=== PATIENT | male | born 1960 | race Caucasian/White ===

== ENCOUNTER 2024-09-16 17:21 | Emergency (ER) | payer OTHER, SELFPAY ==
--- NOTE | 2024-09-16 17:22 | ECG_ITS ---
Test Date: 2024-09-16 17:29:20 Measurements Intervals [place] Rate: 77 P: 70 AL: 160 QRS: 62 QRSD: 90 T: 65 QT: 366 QTc: 416 Interpretive Statements SINUS RHYTHM POSSIBLE LEFT ATRIAL ENLARGEMENT BASELINE ARTIFACT- I, II, III, AVR, AVL, AVF, V1-V6 BORDERLINE ECG No previous ECG available for comparison Electronically Signed On 09-16-2024 17:52:43 PROGRAM CHECKER by El Etienne D.O.
[2024-09-16 17:30] VITALS: BP 152/82; PULSE 79; RESP 15; O2SAT 99
[2024-09-16 17:32] VITALS: BP 156/84; PULSE 75; RESP 18; TEMP 36.6; O2SAT 100
--- NOTE | 2024-09-16 17:40 | PC.NURSE ---
Upon re-entering room patient states he was able to burp and feels much better, pain is gone.
--- NOTE | 2024-09-16 17:43 | ED.GENADULT ---
HPI - General Adult General Chief complaint: Chest Pain Stated complaint: chest pain Time Seen by Provider: 09/16/24 17:39 History of Present Illness HPI narrative: Jabier is a 64M with no PMH that presented to the ED with pressure and discomfort in his LUQ. His niece gave him a 325 when he said the pain went up into his left shoulder. There is no dyspnea, vomiting, lightheadedness, or palpitations. He did have good relief just now after he belched. Related Data Home Medications Medication Instructions Recorded Confirmed No Home Medications 09/16/24 09/16/24 Allergies Allergy/AdvReac Type Severity Reaction Status Date / Time No Known Allergies Allergy Verified 09/16/24 17:36 Review of Systems Review of Systems: All systems reviewed & are unremarkable except as noted in HPI and below Exam Const: General: cooperative, healthy appearing, comfortable, no acute distress, well developed, alert, awake and Physically active Orientation/consciousness: oriented to person, oriented to place and oriented to time HENMT: Head: normal to inspection, normocephalic and atraumatic Ears: hearing grossly normal bilaterally and external ears normal Face/Nose/Sinus: Normal external nose present Eyes: General: appearance normal, both eyes and all related structures Periorbital: periorbital findings normal Sclera: sclerae normal Pupils: Equal, round and reactive pupils present Neck: Neck: normal visual inspection Chest: Chest palpation & inspection: normal inspection of the chest Resp: Effort & Inspection: normal respiratory effort, able to speak in complete sentences and no respiratory distress Auscultation: clear to auscultation bilaterally Cardio: Jugular venous distension: no JVD Rate: regular rate Rhythm: regular rhythm GI: Inspection: normal to inspection GI Palp: Yes Soft to palpation Auscultation: normal bowel sounds Other: Mild discomfort to palpation in the LUQ Skin: General skin exam: normal color and no rashes or lesions noted Neuro: General: oriented to person, oriented to place and oriented to time Cranial nerves: Yes Equal, round and reactive pupils present Extrem: General: normal to inspection Course Course Emergency Course: Ordered labs and EKG as well as GI cocktail. EKG showed NSR with a rate of 77, normal axis, no ST elevation/depression or ectopy. Negative trop. Other labs are unremarkable. Given resolution of symptoms and negative troponin it is unlikely to be cardiac in origin and is likely from gas. Vital Signs Vital signs: Vital Signs Temperature 97.8 F 09/16/24 17:32 Pulse Rate 75 09/16/24 17:32 Respiratory Rate 18 09/16/24 17:32 Blood Pressure 156/84 H 09/16/24 17:32 Pulse Oximetry 100 09/16/24 17:32 Oxygen Delivery Room Air 09/16/24 17:32 Temperature 97.8 F 09/16/24 17:32 Pulse Rate 75 09/16/24 17:32 Respiratory Rate 18 09/16/24 17:32 Blood Pressure 156/84 H 09/16/24 17:32 Pulse Oximetry 100 09/16/24 17:32 Oxygen Delivery Room Air 09/16/24 17:32 Medical Decision Making Vital Signs Vital Signs: Vital Signs Temperature 97.8 F 09/16/24 17:32 Pulse Rate 75 09/16/24 17:32 Respiratory Rate 18 09/16/24 17:32 Blood Pressure 156/84 H 09/16/24 17:32 Pulse Oximetry 100 09/16/24 17:32 Oxygen Delivery Room Air 09/16/24 17:32 Temperature 97.8 F 09/16/24 17:32 Pulse Rate 75 09/16/24 17:32 Respiratory Rate 18 09/16/24 17:32 Blood Pressure 156/84 H 09/16/24 17:32 Pulse Oximetry 100 09/16/24 17:32 Oxygen Delivery Room Air 09/16/24 17:32 Lab Data 09/16/24 17:58 09/16/24 17:58 Labs: Lab Results 09/16/24 Range/Units 17:58 WBC 8.5 (4.8-10.8) K/mm3 RBC 4.33 L (4.70-6.10) M/mm3 Hgb 14.4 (12.4-15.3) g/dL Hct 41.5 (37.0-46.0) % MCV 95.8 (78.0-102.0) fL MCH 33.3 H (27.0-31.0) pg MCHC 34.7 (32-36) g/dL RDW 13.2 (11.6-14.4) % Plt Count 274 (150-420) K/mm3 MPV 8.4 L (8.7-11.0) fl Immature Gran % (Auto) 0.4 H (0.0-0.0) % Neut % (Auto) 58.9 (50.0-70.0) % Lymph % (Auto) 33.2 (18.0-42.0) % [place] % (Auto) 5.4 (2.0-11.0) % Eos % (Auto) 1.9 (1.0-6.0) % Baso % (Auto) 0.2 (0.0-1.0) % Lymph # (Auto) 2.81 (1.10-4.50) K/mm3 [place] # (Auto) 0.46 (0.10-0.90) K/mm3 Eos # (Auto) 0.16 (0.02-0.50) K/mm3 Baso # (Auto) 0.02 (0.00-0.10) K/mm3 Abs Immat Gran (auto) 0.03 H (0.00-0.00) K/mm3 Absolute Neuts (auto) 4.98 (1.70-7.20) K/mm3 Absolute Nucleated RBC 0.00 (0.00-0.00) K/mm3 Nucleated RBC % 0.0 (0-0.0) % Sodium 135 L (136-145) mmol/L Potassium 3.5 (3.5-5.1) mmol/L Chloride 98 (98-108) mmol/L Carbon Dioxide 26 (21-32) mmol/L Anion Gap 11 (4-12) mmol/L BUN 12 (7-18) mg/dL Creatinine 1.04 (0.70-1.30) mg/dL Estim Creat Clear Calc 67 ml/min Estimated GFR > 60 (59 - ) Glucose 123 H (70-99) mg/dL Calculated Osmolality 280 L (285-295) mOsm/kg Calcium 8.7 (8.5-10.1) mg/dL Total Bilirubin 0.4 (0.00-1.00) mg/dL AST 11 L (15-37) U/L ALT 16 (16-63) U/L Alkaline Phosphatase 73 (46-116) U/L Troponin I < 4.0 (0.00-60.4) ng/L C-Reactive Protein < 0.5 (0.0-0.9) mg/dL Total Protein 6.6 (6.4-8.2) g/dL Albumin 3.5 (3.4-5.0) g/dL Lipase 59 (16-77) U/L Discharge Plan Discharge Clinical Impression: Acute epigastric pain Patient Disposition: Home, Self-Care Condition: Stable Instructions: Epigastric Pain (ED) Prescriptions: No Action No Home Medications Follow-up/Referrals: Ashley Mclean MD [Primary Care Provider] -
[2024-09-16 17:45] VITALS: BP 148/72; PULSE 79; RESP 16; O2SAT 98
[2024-09-16] MEDS: MAG HYDROX/ALUMINUM HYD/SIMETH 30 ML, PHENobarb/HYOSCY/ATROPINE/SCOP 32.4 MG, LIDOCAINE... PO (17:47)
[2024-09-16 18:00] VITALS: BP 140/68; PULSE 85; RESP 16; O2SAT 99
[2024-09-16 18:01] LABS: Basophils Absolute Auto 0.02 K/mm3 (0.00-0.10); Basophils Percent Auto 0.2 % (0.0-1.0); Eosinophils Absolute Auto 0.16 K/mm3 (0.02-0.50); Eosinophils Percent Auto 1.9 % (1.0-6.0); Hematocrit 41.5 % (37.0-46.0); Hemoglobin 14.4 g/dL (12.4-15.3); Immature Granulocyte Absolute 0.03 K/mm3 (0.00-0.00); Immature Granulocyte Percent A 0.4 % (0.0-0.0); Lymphocytes Absolute Auto 2.81 K/mm3 (1.10-4.50); Lymphocytes Percent Auto 33.2 % (18.0-42.0); Mean Corpuscular HGB Conc 34.7 g/dL (32-36); Mean Corpuscular Hemoglobin 33.3 pg (27.0-31.0); Mean Corpuscular Volume 95.8 fL (78.0-102.0); Mean Platelet Volume 8.4 fl (8.7-11.0); Monocytes Absolute Auto 0.46 K/mm3 (0.10-0.90); Monocytes Percent Auto 5.4 % (2.0-11.0); Neutrophils Absolute Auto 4.98 K/mm3 (1.70-7.20); Neutrophils Percent Auto 58.9 % (50.0-70.0); Platelet Count Result 274 K/mm3 (150-420); Red Blood Count 4.33 M/mm3 (4.70-6.10); Red Cell Distribution Width 13.2 % (11.6-14.4); White Blood Count 8.5 K/mm3 (4.8-10.8)
[2024-09-16 18:15] VITALS: BP 145/72; PULSE 87; RESP 15; O2SAT 97
[2024-09-16 18:19] LABS: Alanine Aminotransferase 16 U/L (16-63); Albumin Level 3.5 g/dL (3.4-5.0); Alkaline Phosphatase 73 U/L (46-116); Anion Gap 11 mmol/L (4-12); Aspartate Amino Transferase 11 U/L (15-37); Bilirubin,Total 0.4 mg/dL (0.00-1.00); Blood Urea Nitrogen 12 mg/dL (7-18); Calcium 8.7 mg/dL (8.5-10.1); Carbon Dioxide 26 mmol/L (21-32); Chloride 98 mmol/L (98-108); Estimated CRCL calculation 67 ml/min; Estimated Glomerular Filt Rate > 60; Glucose 123 mg/dL (70-99); Lipase 59 U/L (16-77); Osmolality Calculated 280 mOsm/kg (285-295); Potassium 3.5 mmol/L (3.5-5.1); Sodium 135 mmol/L (136-145); Total Protein 6.6 g/dL (6.4-8.2)
[2024-09-16 18:20] LABS: CRP < 0.5 mg/dL (0.0-0.9); Troponin I < 4.0 ng/L (0.00-60.4)
[2024-09-16 18:31] VITALS: BP 145/72; PULSE 87; RESP 15; TEMP 36.6; O2SAT 97
== END 2024-09-16 18:31 | disposition home or self-care (01) ==
PROVIDERS: Emergency Provider Family Medicine; PCP Internal Medicine
DX: R10.13 Epigastric pain (principal)
CPT/HCPCS: 36415; 80053; 83690; 84484; 85025; 86140; 93005; 99284; A9270